=== PATIENT | female | born 1965 | race Caucasian/White ===

== ENCOUNTER 2019-12-07 09:39 | Day surgery (SDC) | payer OTHER ==
[2019-12-07 10:20] LABS: Absolute Lymphocytes (CBC) 1.8 K/uL (0.7-4.9); Basophils % 0.9 % (0-1.3); Hematocrit 31.5 % (36.0-45.0); Lymphocytes % 26.3 % (15.3-44.8); MPV 7.7 fL (7.6-11.3); RBC Red Blood Cell Count 4.77 M/uL (3.86-4.86)
[2019-12-07 10:23] LABS: Protime INR 0.89
[2019-12-07 10:30] LABS: Potassium 3.7 mmol/L (3.5-5.1)
[2019-12-07] MEDS ORDERED: MIDAZOLAM HCL 2 MG/2 ML INJ ONE ×2 (10:46→11:55)
[2019-12-07 11:15] LABS: Anisocytosis 1+; Blood Morphology Comment NOTED (NOT SEEN); Hypochromasia 1+; Platelet Estimate INCR; Urine White Blood Cell Casts OK
[2019-12-07] MEDS ORDERED: NA CHLORIDE 0.9% 500 ML ONE (11:27)
[2019-12-07] MEDS ORDERED: HEPA 1000U/500MLS 1,000 UNIT/500 ML BAG IV ONE (11:46)
[2019-12-07] MEDS ORDERED: ATROPINE SULF 1 MG/10 ML SYR IV ONE (11:46)
[2019-12-07] MEDS ORDERED: FENTANYL CITR 100 MCG/2 ML ONE (11:46)
[2019-12-07] MEDS ORDERED: NA CHLORIDE 0.9% 0 ML ONE (11:46)
--- NOTE | 2019-12-07 12:39 | OP ---
Surgeon: Petey Omer MD Float Tender: Ignacio Odell. Admitted as an outpatient today through the construction laborer for heart catheterization. Procedures: Left heart catheterization, selective coronary arteriogram and left ventriculogram, end- diastolic pressure measurements. Indication: Unstable angina and positive stress test. Procedure In Detail: The patient was prepped and draped in the routine sterile fashion. A 6-Monegasque sheath introduced in the right common femoral artery successfully. She had Versed and fentanyl for s edation, became slightly hypotensive, received 250 mL of normal saline bolus. Ralf catheter initi ally a 6-Monegasque JL4 was introduced into the left main, but she dampened her pressure to practically 0 . I exchanged that to a 4-Monegasque catheter, left Ralf. This showed about 20% left main stenosis. She had very small coronaries throughout between 1-1/2 to 2 mm in size. A JR4 6-Monegasque catheter was used to cannulate the right main same scenario. The catheter showed right coronary artery that is v marie small about 1-1/2 mm in size. She was codominant. The JR4 was also used to do an LV-gram, which was normal with an ejection fraction more than 70%. She had normal wall motion. Her end-diastolic pressure in the left ventricle was 15 mmHg. There were no complications or blood loss. Final Diagnoses: Moderate coronary artery disease. Plan: Plan is for medical therapy. Anesthesia: Total conscious sedation was 30 minutes. The patient will go home today in 2 hours and I will have her come see me in the office next week. SAM/MIC Voice ID: [id number] Report ID: [id number]
[2019-12-07 13:14] VITALS: TEMP 97.2
[2019-12-07 13:50] VITALS: O2SAT 98
[2019-12-07 14:25] VITALS: BP 106/70
== END 2019-12-07 14:15 | disposition home or self-care (01) ==
LOC: CCL 09:39
PROVIDERS: ATTEND Internal Medicine
DX: I25.110 Atherosclerotic heart disease of native coronary artery with unstable angina pectoris (principal); I10 Essential (primary) hypertension; E78.5 Hyperlipidemia, unspecified; E03.8 Other specified hypothyroidism; Z87.891 Personal history of nicotine dependence; Z79.82 Long term (current) use of aspirin; Z88.2 Allergy status to sulfonamides; Z88.0 Allergy status to penicillin; Z82.49 Family history of ischemic heart disease and other diseases of the circulatory system
CPT/HCPCS: 85025; 80048; 36415; 85610; 85730; 93458; C1893; C1760; J2250; J3010; J7040; J0583

== ENCOUNTER 2023-04-27 10:30 | Inpatient (IN) | payer OTHER ==
--- OUTSIDE RECORDS SUMMARY | 2023-04-27 10:36 | XMS REPORT | Continuity of Care Document ---
:1965 Author Organization [facility] Address [address] [place] [address] [place] [id number] Care Team Providers Name Role Phone MERLYN Attending Clinician Unavailable Dylan Attending Clinician Unavailable MERLYN Admitting Clinician Unavailable Dylan Admitting Clinician Unavailable Payers Payer Name Policy Type Policy Number Effective Date Expiration Date Joey QUINTANILLA [id number] 2011 00:00:00 Problems This patient has no known problems. Allergies, Adverse Reactions, Alerts This patient has no known allergies or adverse reactions. Medications This patient has no known medications. Procedures This patient has no known procedures. Encounters Start End Encounter Admission Attending Care Care Encounter Source Date/Time Date/Time Type Type Clinicians Facility Department ID 2022-01-16 2022-01-16 Outpatient JESU [facility]ERA [facility] [id number] [place] 00:00:00 00:00:00 JIEMNEZ [id number] [facility] Program 2020-02-15 2020-02-15 Outpatient Dylan MMJohana [id number] [place] 03:11:00 03:11:00 [id number] [facility] Results This patient has no known results.
[2023-04-27 11:09] LABS: Absolute Lymphocytes (CBC) 1.1 K/uL (0.7-4.9); Hematocrit 40.4 % (36.0-45.0); Lymphocytes % 14.5 % (15.3-44.8); MCV 88.3 fL (80-100); MPV 7.3 fL (7.6-11.3); Platelets 292 thou/uL (152-406); RBC Red Blood Cell Count 4.58 M/uL (3.86-4.86)
[2023-04-27 11:11] LABS: Protime INR 0.91
[2023-04-27 11:34] LABS: Troponin High Sensitivity 351.4 pg/mL (<58.9)
--- NOTE | 2023-04-27 12:10 | ER ---
Nurse's Notes [facility] Name: Judit Gallo Age: 58 yrs Sex: Female : 1965 Arrival Date: 04/27/2023 Time: 10:30 Bed 16 Private MD: Diagnosis: Unstable angina;Non ST elevation [place] Presentation: 04/27 10:38 Chief complaint: Patient states: Sent in by Dr. Rosenberg for further eval. CP and ll1 abnormal EKG. Coronavirus screen: Client denies travel out of the [place] in the last 14 days. At this time, the client does not indicate any symptoms associated with coronavirus-19. Ebola Screen: Patient denies travel to an Ebola-affected area in the 21 days before illness onset. Initial Sepsis Screen: Does the patient meet any 2 criteria? No. Patient's initial sepsis screen is negative. Does the patient have a suspected source of infection? No. Patient's initial sepsis screen is negative. Risk Assessment: Do you want to hurt yourself or someone else? Patient reports no desire to harm self or others. Onset of symptoms was April 22, 2023. 10:38 Method Of Arrival: Ambulatory ll1 10:38 Acuity: DAVIN 2 ll1 Historical: - Allergies: 10:37 PENICILLINS; ll1 10:37 Sulfa (Sulfonamide Antibiotics); ll1 - PMHx: 10:37 Hypertensive disorder; Hypercholesterolemia; Hypothyroidism; ll1 - PSHx: 10:37 None; ll1 - Immunization history:: Adult Immunizations up to date. - Social history:: Smoking status: Patient denies any tobacco usage or history of. - Family history:: not pertinent. - Hospitalizations: : No recent hospitalization is reported. Screenin:14 [facility] ED Fall Risk Assessment (Adult) Score/Fall Risk Level 0 - 2 = Low Risk nj1 Oriented to surroundings, Maintained a safe environment, Hourly rounding (assess needs \T\ fall precautionary measures) done. Abuse screen: Denies threats or abuse. Denies injuries from another. Nutritional screening: No deficits noted. Tuberculosis screening: No symptoms or risk factors identified. Assessment: 11:14 General: Appears in no apparent distress. comfortable, Behavior is calm, cooperative, nj1 appropriate for age. Pain: Denies pain. Neuro: Level of Consciousness is awake, alert, obeys commands, Oriented to person, place, time, situation. Cardiovascular: Denies chest pain, Patient's skin is warm and dry. Respiratory: Airway is patent Respiratory effort is even, unlabored. 12:30 Reassessment: Patient appears in no apparent distress at this time. No changes from nj1 previously documented assessment. Patient and/or family updated on plan of care and expected duration. Pain level reassessed. Patient is alert, oriented x 3, equal unlabored respirations, skin warm/dry/pink. Patient denies pain at this time. Vital Signs: 10:38 BP 137 / 82; Pulse 68; Resp 17; Temp 97.9; Pulse Ox 100% ; Weight 62.14 kg; Height 5 ll1 ft. 6 in. ; Pain 0/10; 10:45 BP 116 / 99; Pulse 62; Resp 16; Pulse Ox 100% ; nj1 11:45 BP 103 / 77; Pulse 52; Resp 16; Pulse Ox 100% ; nj1 12:30 BP 114 / 72; Pulse 53; Resp 15; Pulse Ox 100% ; Pain 0/10; nj1 10:38 Body Mass Index 22.11 (62.14 kg, 167.64 cm) ll1 10:38 Pain Scale: Adult ll1 12:30 Pain Scale: Adult nj1 ED Course: 10:31 Patient arrived in ED. ll1 10:31 Elroy Bernard MD is Attending Physician. rn 10:37 Arm band placed on Patient placed in an exam room, on a stretcher. ll1 10:39 Triage completed. ll1 10:52 Heather Askew, BERNARDA is Primary Nurse. nj1 11:15 Patient has correct armband on for positive identification. Bed in low position. Call nj1 light in reach. Adult w/ patient. Provided Education on: call light, fall precautions. 12:10 Chase Tobias MD is Hospitalizing Provider. rn 12:20 XRAY Chest (1 view) In Process Unspecified. EDMS 12:29 Inserted saline lock: 20 gauge in left forearm, using aseptic technique. ,using aseptic nj1 technique. Ultrasound guided. Catheter tip well visualized within vasculature during placement. Blood collected. 12:30 IV 20 R AC, previously inserted by Carolyn Winchester RN. Pt complaining of pain when this RN nj1 attempts to flush IV. . 12:45 No provider procedures requiring assistance completed. Patient admitted, IV remains in nj1 place. Administered Medications: 12:12 Drug: Aspirin PO 81 mg PO once Route: PO; nj1 12:38 Drug: Heparin ([place] Drip) 12 units/kg/[place] - ([place] [address] units, D5W IV 500 ml) IV at [facility] calculated rate Per protocol; Max initial rate 1000 units/hr {Co-Signature: aa5 (Aicha Cunningham RN).} Route: IV; Rate: calculated rate; Site: left forearm; 12:38 Drug: Heparin ([place]-Bolus No thrombolytic) - HEParin IVP 60 units/kg IVP once; Max 5000 nj1 units {Co-Signature: aa5 (Aicha Cunningham RN).} Route: IVP; Site: left forearm; Medication: 12:59 VIS not applicable for this client. nj Outcome: 12:10 Decision to Hospitalize by Provider. rn 12:43 Admitted to Senior Analytical Chemist accompanied by nurse, family with patient, via stretcher, Report [facility] called to Bedside report to Graciela MENCHACA 12:43 Condition: stable nj1 12:43 Instructed on the need for admit, 12:49 Patient left the ED. [facility] Signatures: Dispatcher [employer] EDMS Elroy Bernard MD MD rn Lewis, Lynsay, RN RN 1 Heather Askew RN RN njAicha Montgomery RN aa5 Corrections: (The following items were deleted from the chart) 13:00 13:00 Patient [place] the ED. [place] [id number]
--- NOTE | 2023-04-27 12:10 | EDPHYS ---
Physician Documentation [facility] Name: Judit Gallo Age: 58 yrs Sex: Female : 1965 Arrival Date: 04/27/2023 Time: 10:30 Bed 16 Private MD: ED Physician Elroy Bernard HPI: 04/27 11:04 This 58 yrs old Female presents to ER via Ambulatory with complaints of Chest Pain. rn 11:04 The patient or guardian reports chest pain that is located primarily in the substernal rn area. Onset: 5 day(s) ago. The pain radiates to the left arm. Associated signs and symptoms: Pertinent negatives: abdominal pain, cough, diaphoresis, near syncope, palpitations, shortness of breath, syncope, vomiting. The chest pain is described as a pressure. Duration: The patient or guardian reports multiple episodes, that are intermittent, the episodes last approximately 20 minute(s). Modifying factors: The symptoms are alleviated by nothing. the symptoms are aggravated by nothing. Severity of pain: At its worst the pain was moderate in the emergency department the pain has resolved. The patient has not experienced similar symptoms in the past. Patient reports substernal chest pain, pressure, radiates down to the left arm, no diaphoresis or dyspnea. Episodes last 10 to 20 minutes. Currently no chest pain, last episode of chest pain was in Dr. Rosenberg's office just prior to coming in. Last heart catheter showed 20% blockage of left main.. Historical: - Allergies: 10:37 PENICILLINS; ll1 10:37 Sulfa (Sulfonamide Antibiotics); ll1 - PMHx: 10:37 Hypertensive disorder; Hypercholesterolemia; Hypothyroidism; ll1 - PSHx: 10:37 None; ll1 - Immunization history:: Adult Immunizations up to date. - Social history:: Smoking status: Patient denies any tobacco usage or history of. - Family history:: not pertinent. - Hospitalizations: : No recent hospitalization is reported. ROS: 11:04 Constitutional: Negative for fever, chills, and weight loss, Cardiovascular: Positive rn for chest pain Respiratory: Negative for shortness of breath, cough, wheezing, and pleuritic chest pain, Abdomen/GI: Negative for abdominal pain, nausea, vomiting, diarrhea, and constipation, Back: Negative for injury and pain, MS/Extremity: Negative for injury and deformity, Skin: Negative for injury, rash, and discoloration, Neuro: Negative for headache, weakness, numbness, tingling, and seizure, Exam: 11:04 Constitutional: This is a well developed, well nourished patient who is awake, alert, rn and in no acute distress. Head/Face: Normocephalic, atraumatic. Cardiovascular: Regular rate and rhythm. No pulse deficits. Respiratory: Speaking full sentences, unlabored. No increased work of breathing, no retractions or nasal flaring. Abdomen/GI: Soft, nontender Neuro: Awake and alert, GCS 15 15:52 ECG was reviewed by the Attending Physician. rn Vital Signs: 10:38 BP 137 / 82; Pulse 68; Resp 17; Temp 97.9; Pulse Ox 100% ; Weight 62.14 kg; Height 5 ll1 ft. 6 in. ; Pain 0/10; 10:45 BP 116 / 99; Pulse 62; Resp 16; Pulse Ox 100% ; nj1 11:45 BP 103 / 77; Pulse 52; Resp 16; Pulse Ox 100% ; nj1 12:30 BP 114 / 72; Pulse 53; Resp 15; Pulse Ox 100% ; Pain 0/10; nj1 10:38 Body Mass Index 22.11 (62.14 kg, 167.64 cm) ll1 10:38 Pain Scale: Adult ll1 12:30 Pain Scale: Adult nj1 MDM: 10:31 Patient medically screened. rn 12:08 Differential diagnosis: abnormal EKG, acute myocardial infarction, acute pericarditis, rn coronary artery disease costochondritis, gastritis, gastroesophageal reflux disease (GERD), pericarditis, unstable angina. HEART Score: History: Highly Suspicious (2), ECG: Significant ST-deviation (2), Age: > 45 and < 65 years (1), Risk Factors: > or = 3 Risk factors for atherosclerotic disease (2), Troponin: > or = 3 x Normal Limit (2), Total Score = 9. The patient was given aspirin in the Emergency Department. Data reviewed: vital signs, nurses notes, lab test result(s), EKG, radiologic studies, plain films, and as a result, I will admit patient. Consideration of Admission/Observation Patient was admitted/placed on observation. Escalation of care including admission/observation considered. Management of patient was discussed with the following: Registered Public Surveyor: Dr. Raslan, requests case discussed, plans to cath later today, wants heparin and aspirin.. I considered the following discharge prescriptions or medication management in the emergency department Medications were administered in the Emergency Department. See MAR. Independent interpretation of the following test(s) in the Emergency Department EKG: See my EKG interpretation above X-Ray: My interpretation is Chest x-ray shows signs of smoking but no other acute abnormality per my interpretation. Counseling: I had a detailed discussion with the patient and/or guardian regarding the historical points, exam findings, and any diagnostic results supporting the discharge/admit diagnosis, lab results, radiology results, the need for further work-up and treatment in the hospital. Response to treatment: the patient is now symptom free. 12:08 ED course: I personally spent 35 minutes engaged in work directly related to the rn individual patient's care. This does not include any time spent performing procedures. The patient has been deemed critically ill because of unstable angina/non-STEMI with dynamic EKG changes that will require urgent heparin infusion and catheterization by cardiology.. 04/27 10:32 Order name: Basic Metabolic Panel; Complete Time: 11:37 rn 04/27 10:32 Order name: CBC with Diff; Complete Time: 11: rn 04/27 10:32 Order name: NT PRO-BNP; Complete Time: 11:37 rn 04/27 10:32 Order name: PT-INR; Complete Time: 11:21 rn 04/27 10:32 Order name: Troponin HS; Complete Time: 11:37 rn 04/27 12:10 Order name: Ptt, Activated nj1 04/27 12:33 Order name: Troponin High Sensitivity [facility] 04/27 12:33 Order name: Troponin High Sensitivity [facility] 04/27 12:33 Order name: Troponin High Sensitivity [facility] 04/27 10:32 Order name: XRAY Chest (1 view); Complete Time: 12:32 rn 04/27 10:32 Order name: EKG; Complete Time: 10:32 rn 04/27 10:32 Order name: Cardiac monitoring; Complete Time: 11: rn 04/27 10:32 Order name: EKG - Nurse/Tech; Complete Time: 11: rn 04/27 10:32 Order name: IV Saline Lock; Complete Time: 11: rn 04/27 10:32 Order name: Labs collected and sent; Complete Time: 11: rn 04/27 10:32 Order name: O2 Per Protocol; Complete Time: 11 rn 04/27 10:32 Order name: O2 Sat Monitoring; Complete Time: 11: rn EC:52 Rate is 55 beats/min. Rhythm is regular. QRS [place] is Normal. [place] interval is normal. QRS rn interval is normal. QT interval is normal. No Q waves. T waves are Normal. ST Segment is depressed in leads V4, V5, V6. Clinical impression: Sinus bradycardia. Interpreted by me. Reviewed by me. Administered Medications: 12:12 Drug: Aspirin PO 81 mg PO once Route: PO; nj1 12:38 Drug: Heparin ([place] Drip) 12 units/kg/[place] - ([place] [address] units, D5W IV 500 ml) IV at nj1 calculated rate Per protocol; Max initial rate 1000 units/hr {Co-Signature: aa5 (Aicha Cunningham RN).} Route: IV; Rate: calculated rate; Site: left forearm; 12:38 Drug: Heparin ([place]-Bolus No thrombolytic) - HEParin IVP 60 units/kg IVP once; Max 5000 nj1 units {Co-Signature: aa5 (Aicha Cunningham RN).} Route: IVP; Site: left forearm; Disposition: 12:08 Critical Care:. rn Disposition Summary: 04/27/23 12:10 Hospitalization Ordered Notes: Hospitalization Status: Inpatient Admission rn Provider: Chase Tobias rn [facility] rn Condition: Stable rn Problem: an ongoing problem rn Symptoms: have improved rn Bed/Room Type: Standard rn Room Assignment: rn Diagnosis - Unstable angina rn - Non ST elevation [place] rn Forms: - Medication Reconciliation Form rn - SBAR form rn - Leadership Thank You Letter software intern time excluding procedures: 12:08 Critical care time: Bedside Care: 30 minutes, Consultation: 5 minutes. Total time: 35 rn minutes Signatures: Dispatcher [employer] Elroy Short MD MD rn Lewis, Lynsay RN RN ll1 Heather Askew RN RN nj1 Aicha Cunningham RN aa5
[2023-04-27] MEDS ORDERED: HEPARIN 5000 UNIT/ML 1 ML VIAL ONE ×2 (12:19→13:24)
[2023-04-27] MEDS ORDERED: ASPIRIN 81 MG CHEWABLE TABLET ONE (12:19)
[2023-04-27] MEDS ORDERED: ONDANSETRON 4 MG/2 ML VIAL IV PRN (12:20)
--- NOTE | 2023-04-27 12:28 | RAD REPORT ---
EXAM DESCRIPTION: RAD - Chest Single View - 04/27/2023 12:19 pm CLINICAL HISTORY: CHEST PAIN Chest pain. COMPARISON: No comparisons FINDINGS: Portable technique limits examination quality. The lungs are grossly clear. Small right pleural effusion suspected. The heart is normal in size. No displaced fractures.Cervical hardware plate. IMPRESSION: No acute intrathoracic process suspected.
--- NOTE | 2023-04-27 12:28 | P.HP ---
Certification for Inpatient Patient admitted to: Inpatient With expected LOS: >2 Midnights Practitioner: I am a practitioner with admitting privileges, knowledge of patient current condition, hospital course, and medical plan of care. Services: Services provided to patient in accordance with Admission requirements found in Title 42 Section 412.3 of the Code of Federal Regulations Patient History Date of Service: 04/27/23 Reason for admission: Chest pain, NSTEMI History of Present Illness: 58 y o female patient was has a medical hx significant for hypertension, hyperlipidemia and prior history of left heart cath for suspected ACS admitted for management of NSTEMI. She had complaint of persistent chest pain that has been recurrent rated 7-10 out of intensity on several ocassions. Pain radiates into the left arm and the left jaw and also the right jaw. No issues with shortness of breath, nausea, vomiting, fever, chills, cough. Initial troponin done in the emergency room was elevated at >300 and patient was initially seen in the patient admitting clerk office and was asked to come to the ER for evaluation. She was started on heparin drip and was admitted for inpatient care and left heart cath. Allergies Penicillins Allergy (Verified 12/07/19 09:44) Anaphylaxis Sulfa (Sulfonamide Antibiotics) Allergy (Verified 12/07/19 09:44) Nausea/Vomiting - Past Medical/Surgical History Diabetic: No Review of Systems General: Unremarkable Eyes: Unremarkable ENT: Unremarkable Respiratory: Unremarkable Cardiovascular: Chest Pain Gastrointestinal: Unremarkable Genitourinary: Unremarkable Musculoskeletal: Unremarkable Integumentary: Unremarkable Neurological: Unremarkable Physical Examination - Physical Exam General: Alert HEENT: Atraumatic, Normocephalic Neck: Supple Respiratory: Normal air movement Cardiovascular: Regular rate/rhythm, Normal S1 S2 Gastrointestinal: Soft and benign Neurological: Normal speech, Normal strength at 5/5 x4 extr - Studies Laboratory Data (last 24 hrs) 04/27/23 04/27/23 04/27/23 10:55 10:55 10:55 WBC 7.30 Hgb 13.7 Hct 40.4 Plt Count 292 PT 10.0 INR 0.91 Sodium 139 Potassium 3.0 L BUN 18 Creatinine 1.29 H Glucose 108 H Assessment and Plan - Plan NSTEMI: Patient has elevated troponin and chest pain concerning for ACS. EKG changes not compatible with STEMI. Heparin restarted by cardiology service. We will have left heart catheter as per patient admitting clerk recommendation. Continue statin therapy and aspirin therapy post left heart cath. Further management recommendation as per cardiology team. Should be continued on telemetry Hypertension: We will monitor vital signs per unit protocol and continue antihypertensive medications Hyperlipidemia: We will continue statin therapy. Prophylaxis: Heparin drip should suffice for NSTEMI management and DVT prophylaxis. CODE STATUS: Full code. Disposition: Work-up for NSTEMI as per cardiology and pending discharge post work up. - Advance Directives Does patient have a Living Will: No Does patient have a Durable POA for Healthcare: No
[2023-04-27] MEDS ORDERED: HEPARIN/D5W 25,000 UNIT/500 ML BAG IV SCH (13:00)
[2023-04-27] MEDS ORDERED: NA CHLORIDE 0.9% 500 ML ONE (13:08)
[2023-04-27] MEDS ORDERED: LIDOCAINE 1% 20 ML MDV ONE ×3 (13:23→15:31)
[2023-04-27] MEDS ORDERED: HEPA 1000U/500MLS 2,000 UNIT/1,000 ML BAG IV ONE (13:23)
[2023-04-27] MEDS ORDERED: VERAPAMIL HCL 10 MG/4 ML VIAL IV ONE (13:24)
[2023-04-27] MEDS ORDERED: FENTANYL CITR 100 MCG/2 ML ONE ×3 (13:24→16:34)
[2023-04-27] MEDS ORDERED: CLOPIDOGREL 75 MG TABLET ONE (13:24)
[2023-04-27] MEDS ORDERED: MIDAZOLAM HCL 2 MG/2 ML INJ ONE (13:24)
[2023-04-27] MEDS ORDERED: HEPARIN 10,000 UNIT/10 ML VIAL IV ONE (13:25)
[2023-04-27] MEDS ORDERED: ASPIRIN 325 MG TAB ONE (13:25)
[2023-04-27] MEDS ORDERED: ATROPINE SULF 1 MG/10 ML SYR IV ONE (13:25)
[2023-04-27] MEDS ORDERED: TICAGRELOR 90 MG TABLET PO ONE (13:25)
[2023-04-27] MEDS ORDERED: NITROGLYCERIN 0.4 MG/TAB SL ONE (16:42)
[2023-04-27] MEDS ORDERED: NITROGLYCERIN 0.4 MG/TAB SL PRN (19:31)
[2023-04-27] MEDS: TICAGRELOR 90 MG TABLET PO SCH (20:27)
[2023-04-27] MEDS: ATORVASTATIN 40 MG TAB PO SCH (20:27)
[2023-04-27] MEDS: ACETAMINOPHEN 325 MG TABLET PO PRN (23:03)
[2023-04-27] MEDS: ZOLPIDEM TARTRATE 5 MG TABLET PO PRN (23:08)
[2023-04-27 23:20] VITALS: O2SAT 99
[2023-04-28 02:47] LABS: Absolute Lymphocytes (CBC) 1.2 K/uL (0.7-4.9); Hematocrit 33.3 % (36.0-45.0); Lymphocytes % 14.5 % (15.3-44.8); MCV 87.3 fL (80-100); MPV 7.4 fL (7.6-11.3); Platelets 273 thou/uL (152-406); Protime INR 0.95; RBC Red Blood Cell Count 3.82 M/uL (3.86-4.86)
[2023-04-28 03:23] LABS: Potassium 2.8 mEq/L (3.5-5.1)
[2023-04-28] MEDS: POTASSIUM 25 MEQ EFFERV TAB PO ONE ×2 (04:06→04:15)
[2023-04-28] MEDS: POTASSIUM CL SA 10 MEQ TAB PO ONE ×2 (04:06→04:14)
[2023-04-28] MEDS ORDERED: NA CHLORIDE 0.9% 250 ML ONE (04:34)
[2023-04-28] MEDS ORDERED: KCL 20 MEQ/100 mL IVPB 20 MEQ/100 ML BAG IV SCH (05:00)
[2023-04-28] MEDS ORDERED: POTASSIUM CL SA 10 MEQ TAB PO ONE (06:11)
[2023-04-28] MEDS ORDERED: MORPHINE 2 MG/ML SYR IV PRN (07:23)
[2023-04-28] MEDS: ACETAMINOPHEN 325 MG TABLET PO PRN (07:25)
--- NOTE | 2023-04-28 09:24 | P.PN ---
Subjective Date of Service: 04/28/23 Chief Complaint: Chest pain, NSTEMI Subjective: No new changes, Doing well Patient is alert oriented x3 Report mild back pain radiating to the neck area, nitroglycerin acetaminophen and morphine as needed for pain Patient heart heart cath on 04/27/2023 with 1 stent placement on RCA Vital stable History of Present Illness: 58 y o female patient was has a medical hx significant for hypertension, hyperlipidemia and prior history of left heart cath for suspected ACS admitted for management of NSTEMI. She had complaint of persistent chest pain that has been recurrent rated 7-10 out of intensity on several ocassions. Pain radiates into the left arm and the left jaw and also the right jaw. No issues with shortness of breath, nausea, vomiting, fever, chills, cough. Initial troponin done in the emergency room was elevated at >300 and patient was initially seen in the systems designer office and was asked to come to the ER for evaluation. She was started on heparin drip and was admitted for inpatient care and left heart cath. Review of Systems 10-point ROS is otherwise unremarkable Physical Examination - Vital Signs Temperature: 96.7 F Blood Pressure: 112/68 Pulse: 68 Respirations: 18 Pulse Ox (%): 97 - Physical Exam General: Alert, Oriented x3 HEENT: Atraumatic, Normocephalic, PERRLA Neck: Supple, 2+ carotid pulse no bruit Respiratory: Clear to auscultation bilaterally, Normal air movement Capillary refill: <2 Seconds Gastrointestinal: Normal bowel sounds, Soft and benign Integumentary: No rashes, No breakdown Neurological: Normal speech, Normal tone, Normal affect - Studies Laboratory Data (last 24 hrs) 04/27/23 04/27/23 04/27/23 10:55 10:55 10:55 WBC 7.30 Hgb 13.7 Hct 40.4 Plt Count 292 PT 10.0 INR 0.91 Sodium 139 Potassium 3.0 L BUN 18 Creatinine 1.29 H Glucose 108 H Assessment And Plan - Current Problems (Diagnosis) (1) NSTEMI (non-ST elevated myocardial infarction) Current Visit: Yes Status: Acute (2) HTN (hypertension) Current Visit: Yes Status: Acute (3) HLD (hyperlipidemia) Current Visit: Yes Status: Acute (4) Hypothyroid Current Visit: Yes Status: Acute - Plan Assessment and Plan - Plan NSTEMI: Patient has elevated troponin and chest pain concerning for ACS. EKG changes not compatible with STEMI. Heparin restarted by cardiology service. We will have left heart catheter as per systems designer recommendation. Continue statin therapy and aspirin therapy post left heart cath. Further management recommendation as per cardiology team. Should be continued on telemetry Hypertension: We will monitor vital signs per unit protocol and continue antihypertensive medications Hyperlipidemia: We will continue statin therapy. Prophylaxis: Heparin drip should suffice for NSTEMI management and DVT prophylaxis. CODE STATUS: Full code. Disposition: Work-up for NSTEMI as per cardiology and pending discharge post work up. Discharge Plan: Home Plan to discharge in: 24 Hours - Code Status/Comfort Care Code Status Assessed: Yes (Full code) Code Status: Full Code Physician Review: Patient Assessed, Agree with Above Assessment and Plan Critical Care: No Time Spent Managing PTS Care (In Minutes): 35 (Minutes)
[2023-04-28] MEDS: TICAGRELOR 90 MG TABLET PO SCH ×2 (10:25→21:01)
[2023-04-28] MEDS: ASPIRIN EC 81 MG TAB PO SCH (10:25)
[2023-04-28 12:20] LABS: Potassium 3.4 mEq/L (3.5-5.1)
[2023-04-28] MEDS ORDERED: NA CHLORIDE 0.9% 500 ML ONE (14:27)
[2023-04-28] MEDS ORDERED: LIDOCAINE 1% 20 ML MDV ONE (14:44)
[2023-04-28] MEDS ORDERED: HEPA 1000U/500MLS 2,000 UNIT/1,000 ML BAG IV ONE (14:44)
[2023-04-28] MEDS ORDERED: FENTANYL CITR 100 MCG/2 ML ONE (14:58)
[2023-04-28] MEDS ORDERED: MIDAZOLAM HCL 2 MG/2 ML INJ ONE (14:58)
[2023-04-28] MEDS ORDERED: ASPIRIN 325 MG TAB ONE (14:58)
[2023-04-28] MEDS ORDERED: HEPARIN 10,000 UNIT/10 ML VIAL IV ONE (14:59)
[2023-04-28] MEDS ORDERED: ATROPINE SULF 1 MG/10 ML SYR IV ONE (14:59)
[2023-04-28] MEDS ORDERED: TICAGRELOR 90 MG TABLET PO ONE (14:59)
[2023-04-28] MEDS: ZOLPIDEM TARTRATE 5 MG TABLET PO PRN (21:01)
[2023-04-28] MEDS: ATORVASTATIN 40 MG TAB PO SCH (21:01)
[2023-04-28 23:53] VITALS: BMI 21.7
[2023-04-29 07:09] LABS: Potassium 3.1 mEq/L (3.5-5.1)
--- NOTE | 2023-04-29 07:12 | ECHO ---
HEIGHT: 5 ft 6 in WEIGHT: 135 lb 0 oz DATE OF STUDY: 04/28/[address]: Pino Rosenberg 2-DIMENSIONAL: YES M.MODE: YES DOPPLER: YES COLOR FLOW: YES TDS: PORTABLE: YES DEFINITY: BUBBLE STUDY: DIAGNOSIS: CHEST PAIN, POST HEART CATH CARDIAC HISTORY: CATHERIZATION: YES SURGERY: NO PROSTHETIC VALVE: NO PACEMAKER: NO MEASUREMENTS (cm) DIASTOLIC (NORMALS) SYSTOLIC (NORMALS) IVSd 0.9 (0.6-1.2) LA Diam 2.5 (1.9-4.0) LVEF 70% LVIDd 4.4 (3.5-5.7) LVIDs 2.7 (2.0-3.5) %FS 40% LVPWd 1.0 (0.6-1.2) Ao Diam 2.2 (2.0-3.7) 2 DIMENSIONAL ASSESSMENT: RIGHT ATRIUM: NORMAL LEFT ATRIUM: NORMAL RIGHT VENTRICLE: NORMAL LEFT VENTRICLE: NORMAL TRICUSPID VALVE: NORMAL MITRAL VALVE: TRACE MITRAL REGURGITATION PULMONIC VALVE: NORMAL AORTIC VALVE: NORMAL PERICARDIAL EFFUSION: NONE AORTIC ROOT: NORMAL LEFT VENTRICULAR WALL MOTION: NORMAL DOPPLER/COLOR FLOW: TRACE MITRAL REGURGITATION COMMENTS: 1. NORMAL LEFT VENTRICULAR EJECTION FRACTION 60-65% WITH NORMAL WALL MOTION 2. NORMAL DIASTOLIC FUNCTION 3. TRACE MITRAL REGURGITATION TECHNOLOGIST: OBINNA GARCES
[2023-04-29] MEDS ORDERED: POTASSIUM 25 MEQ EFFERV TAB PO ONE (08:16)
[2023-04-29] MEDS: ASPIRIN EC 81 MG TAB PO SCH (09:08)
[2023-04-29] MEDS: TICAGRELOR 90 MG TABLET PO SCH (09:09)
--- NOTE | 2023-04-29 14:11 | P.DS ---
Admission Date: 04/27/23 Discharge Date: 04/29/23 Disposition: ROUTINE DISCHARGE Discharge Condition: GOOD Reason for Admission: Chest pain, NSTEMI - Problems (1) NSTEMI (non-ST elevated myocardial infarction) Current Visit: Yes Status: Acute (2) HTN (hypertension) Current Visit: Yes Status: Acute (3) HLD (hyperlipidemia) Current Visit: Yes Status: Acute (4) Hypothyroid Current Visit: Yes Status: Acute Brief History of Present Illness: Date of admission 04/27/23 Reason for admission: Chest pain, NSTEMI History of Present Illness: 58 y o female patient was has a medical hx significant for hypertension, hyperlipidemia and prior history of left heart cath for suspected ACS admitted for management of NSTEMI. She had complaint of persistent chest pain that has been recurrent rated 7-10 out of intensity on several ocassions. Pain radiates into the left arm and the left jaw and also the right jaw. No issues with shortness of breath, nausea, vomiting, fever, chills, cough. Initial troponin done in the emergency room was elevated at >300 and patient was initially seen in the deckhand clam dredge office and was asked to come to the ER for evaluation. She was started on heparin drip and was admitted for inpatient care and left heart cath. Hospital Course: Ms. Lopez is a pleasant 58-year-old with a past medical history significant for hypertension hyperlipidemia and prior history of left heart cath for suspected ACS Who was admitted to the [facility] on 04/27/2020 for further management of NSTEMI. Patient hard cardiac cath with intervention on 04/27/2023, 04/29/2023 On 04/29/2020, patient was seen on morning rounds and deemed medically stable for discharge. Patient was discharged with instructions to schedule follow-up appointments with PCP in 3 to 5 days and the deckhand clam dredge Dr. Nichols in 4 weeks. Patient was provided prescriptions for Brilinta. The patient and family members were given the opportunity to ask questions and reported no further questions. Furthermore, all questions were answered to the best of my ability. Vital Signs/Physical Exam: Temp Pulse Resp BP Pulse Ox 97.7 F 64 18 112/60 98 04/29/23 08:00 04/29/23 08:00 04/29/23 08:00 04/29/23 08:00 04/29/23 08:00 General: Alert, Oriented x3 HEENT: Atraumatic, Normocephalic, PERRLA Neck: Supple, 2+ carotid pulse no bruit Respiratory: Clear to auscultation bilaterally, Normal air movement Cardiovascular: No edema, Normal pulses, Regular rate/rhythm Capillary refill: <2 Seconds Gastrointestinal: Normal bowel sounds, Soft and benign, Non-distended Musculoskeletal: No clubbing, No swelling, No contractures Neurological: Normal gait, Normal speech, Normal tone, Normal affect Laboratory Data at Discharge: WBC 8.40 thou/uL (4.3-10.9) 04/28/23 02:06 Hgb 11.9 g/dL (12.0-15.0) L D 04/28/23 02:06 Hct 33.3 % (36.0-45.0) L 04/28/23 02:06 Plt Count 273 thou/uL (152-406) 04/28/23 02:06 PT 10.4 SECONDS (9.5-12.5) 04/28/23 02:06 INR 0.95 04/28/23 02:06 APTT 30.1 SECONDS (24.3-36.9) 04/28/23 02:06 Sodium 140 mEq/L (136-145) 04/29/23 06:28 Potassium 3.1 mEq/L (3.5-5.1) L 04/29/23 06:28 BUN 13 mg/dL (7-18) 04/29/23 06:28 Creatinine 1.14 mg/dL (0.55-1.02) H 04/29/23 06:28 Glucose 138 mg/dL (74-106) H 04/29/23 06:28 Magnesium 2.0 mg/dL (1.6-2.4) 04/28/23 11:48 Home Medications: Aspirin 81 mg PO DAILY 04/27/23 Atorvastatin Calcium 40 mg PO BEDTIME 04/27/23 Estradiol [Estrace] 1 mg PO DAILY 04/27/23 Furosemide 40 mg PO BID 04/27/23 Levothyroxine Sodium 88 mcg PO DAILY 04/27/23 Metoprolol Succinate 25 mg PO DAILY 04/27/23 lisinopriL [Lisinopril] 10 mg PO DAILY 04/27/23 Ticagrelor [Brilinta*] 90 mg PO BID #60 pill 04/29/23 New Medications: Ticagrelor [Brilinta*] 90 mg PO BID #60 pill Physician Discharge Instructions: SEE HEART CATH HANDOUT Ms. Lopez is a pleasant 58-year-old with a past medical history significant for hypertension hyperlipidemia and prior history of left heart cath for suspected ACS Who was admitted to the [facility] on 04/27/2020 for further management of NSTEMI. Patient hard cardiac cath with intervention on 04/27/2023, 04/29/2023 On 04/29/2020, patient was seen on morning rounds and deemed medically stable for discharge. Patient was discharged with instructions to schedule follow-up appointments with PCP in 3 to 5 days and the deckhand clam dredge Dr. Nichols in 4 weeks. Patient was provided prescriptions for Brilinta. The patient and family members were given the opportunity to ask questions and reported no further questions. Furthermore, all questions were answered to the best of my ability. Diet: AHA Activity: Ad josselyn Followup: Pino Rosenberg MD [ACTIVE - CAN ADMIT] - Kiel Little DO [Primary Care Provider] - Time spent managing pt's care (in minutes): 55 (minutes)
[2023-04-29] MEDS ORDERED: CLOPIDOGREL 75 MG TABLET PO ONE (14:17)
[2023-04-29 14:21] VITALS: BP 105/70; TEMP 97.9
== END 2023-04-29 15:00 | disposition home or self-care (01) | DRG 322 ==
LOC: ER 10:30 → ERHOLD 12:21 → 4TH 19:12
PROVIDERS: ADMIT Internal Medicine Nephrology; ATTEND Internal Medicine Nephrology
PROC: 027034Z Dilation of Coronary Artery, One Artery with Drug-eluting Intraluminal Device, Percutaneous Approach (ICD-10-PCS; principal; 2023-04-27)
PROC: 4A023N7 Measurement of Cardiac Sampling and Pressure, Left Heart, Percutaneous Approach (ICD-10-PCS; 2023-04-27)
PROC: B2111ZZ Fluoroscopy of Multiple Coronary Arteries using Low Osmolar Contrast (ICD-10-PCS; 2023-04-27)
DX: I21.4 Non-ST elevation (NSTEMI) myocardial infarction (principal); I10 Essential (primary) hypertension; I20.0 Unstable angina; E03.9 Hypothyroidism, unspecified; M54.9 Dorsalgia, unspecified; E78.00 Pure hypercholesterolemia, unspecified; Z88.2 Allergy status to sulfonamides; Z88.0 Allergy status to penicillin; Z79.82 Long term (current) use of aspirin; Z79.899 Other long term (current) drug therapy
CPT/HCPCS: 36415; 71045; 76937; 80048; 83735; 83880; 84132; 84484; 85025; 85610; 85730; 92928; 93005; 93306; 93458; 96374; 99285; C1725; C1893; J0461; J1644; J2001; J2250; J2270; J2405; J3010; J3480; J7040; J7050; Q9966; Q9967

== ENCOUNTER 2023-10-16 12:18 | Day surgery (SDC) | payer OTHER ==
[2023-10-14 15:00] LABS: Absolute Basophils 0.1 K/uL (0-0.5); Absolute Eosinophils 0.2 K/uL (0-0.5); Absolute Lymphocytes (CBC) 1.3 K/uL (0.7-4.9); Absolute Monocytes 0.5 K/uL (0.1-1.3); Absolute Neutrophil 3.2 K/uL (1.8-8.0); Basophils % 1.4 % (0-1.3); Hematocrit 27.3 % (36.0-45.0); Hemoglobin 8.4 g/dL (12.0-15.0); Lymphocytes % 24.7 % (15.3-44.8); MCH 23.5 pg (27.0-35.0); MCHC 30.9 g/dL (32.0-36.0); MCV 76.1 fL (80-100); MPV 7.3 fL (7.6-11.3); Monocytes % 9.6 % (3.3-12.3); Neutrophils % 61.3 % (41.7-73.7); Platelets 489 thou/uL (152-406); RBC Red Blood Cell Count 3.59 M/uL (3.86-4.86); Red Cell Distribution Width 23.3 % (12.1-15.2)
[2023-10-14 15:08] LABS: PTT, Activated Partial Thromb 39.8 SECONDS (24.3-36.9)
[2023-10-14 15:47] LABS: Anion Gap 11.4 mEq/L (5.0-15.0); Potassium 3.4 mEq/L (3.5-5.1)
[2023-10-14 15:57] LABS: Anisocytosis 2+; Blood Morphology Comment NOTED (NOT SEEN); Platelet Estimate INCR; White Blood Cell Scan OK (OK)
[2023-10-16] MEDS: Ringers Lactate 1,000 ML IV ONE (12:50)
[2023-10-16] MEDS ORDERED: LIDOCAINE 1% MPF 5 ML VIAL ONE (15:42)
[2023-10-16] MEDS ORDERED: propofoL 200 MG/20 ML VIAL IV ONE ×2 (15:42)
[2023-10-16 17:31] VITALS: BP 95/62; TEMP 97.3; O2SAT 97
== END 2023-10-16 17:10 | disposition home or self-care (01) ==
LOC: OR 12:18
PROVIDERS: ATTEND Surgery
PROC: 0DB98ZX Excision of Duodenum, Via Natural or Artificial Opening Endoscopic, Diagnostic (ICD-10-PCS; 2023-10-16)
PROC: 0DB78ZX Excision of Stomach, Pylorus, Via Natural or Artificial Opening Endoscopic, Diagnostic (ICD-10-PCS; 2023-10-16)
PROC: 0DB68ZX Excision of Stomach, Via Natural or Artificial Opening Endoscopic, Diagnostic (ICD-10-PCS; 2023-10-16)
PROC: 0DB48ZX Excision of Esophagogastric Junction, Via Natural or Artificial Opening Endoscopic, Diagnostic (ICD-10-PCS; 2023-10-16)
PROC: 0DBP8ZX Excision of Rectum, Via Natural or Artificial Opening Endoscopic, Diagnostic (ICD-10-PCS; principal; 2023-10-16 15:15)
PROC: 0DBN8ZX Excision of Sigmoid Colon, Via Natural or Artificial Opening Endoscopic, Diagnostic (ICD-10-PCS; 2023-10-16 15:15)
DX: Z12.11 Encounter for screening for malignant neoplasm of colon (principal); D64.9 Anemia, unspecified; D50.0 Iron deficiency anemia secondary to blood loss (chronic); I10 Essential (primary) hypertension; E78.00 Pure hypercholesterolemia, unspecified; K52.9 Noninfective gastroenteritis and colitis, unspecified; K64.8 Other hemorrhoids; K29.50 Unspecified chronic gastritis without bleeding; D12.7 Benign neoplasm of rectosigmoid junction
CPT/HCPCS: 45380; 43239; 85025; 80048; 36415; 88312; 85610; 88305; 85730; J2704; J2001; J7120

== ENCOUNTER 2025-01-29 11:08 | Emergency (ER) | payer OTHER ==
[2025-01-29] MEDS ORDERED: ONDANSETRON 4 MG/2 ML VIAL ONE (11:43)
[2025-01-29] MEDS ORDERED: MORPHINE 4 MG/ML SYR ONE (11:43)
[2025-01-29] MEDS ORDERED: NA CHLORIDE 0.9% 1,000 ML ONE ×2 (11:43→14:06)
[2025-01-29 11:47] LABS: Absolute Lymphocytes (CBC) 0.9 K/uL (0.7-4.9); Hematocrit 31.3 % (36.0-45.0); Hemoglobin 8.9 g/dL (12.0-15.0); MCH 16.1 pg (27.0-35.0); MCHC 28.4 g/dL (32.0-36.0); MCV 56.8 fL (80-100); MPV 8.3 fL (7.6-11.3); Nucleated RBC Absolute Count 0.0 (0-0); Nucleated Red Blood Cells % 0.1 % (0-0); RBC Red Blood Cell Count 5.51 M/uL (3.86-4.86); White Blood Count 14.10 thou/uL (4.3-10.9)
[2025-01-29 11:49] LABS: Sqamous Epithelial None Seen /HPF (None Seen); Urine Micro Reflex YN NO BILL MICROSCOPIC; Urine WBC Clump Many /HPF (None Seen)
[2025-01-29 12:07] LABS: ALT/SGPT < 14 U/L (13-56); AST/SGOT 21 U/L (15-37); Albumin 2.9 g/dL (3.4-5.0); Albumin/Globulin Ratio 0.6 (1.1-1.8); Alkaline Phosphatase 92 U/L (45-117); Anion Gap 13.8 mEq/L (5.0-15.0); BUN Blood Urea Nitrogen 20 mg/dL (7-18); Globulin 5.1 g/dL (2.3-3.5); Glucose Level 135 mg/dL (74-106); Potassium 3.8 mEq/L (3.5-5.1)
--- NOTE | 2025-01-29 12:58 | RAD REPORT ---
EXAMINATION: Abdomen Pelvis Wo Contrast CLINICAL INDICATION: Female, 59 years old.ABD PAIN TECHNIQUE: CT abdomen and pelvis was performed, without IV contrast, as per department protocol. Axia l, sagittal and coronal reconstructions were obtained. One or more of the following dose reduction techniques were used: Automated exposure control, adjustment of the mA and/or kV according to the pat ient size, and/or iterative reconstruction. Unless otherwise specified, incidental findings do not require dedicated imaging follow-up. [id number]. IV CONTRAST: Not administered. COMPARISON: 10/14/2023 FINDINGS: The lack of intravenous contrast limits the sensitivity of this exam for evaluation of solid visceral organs, vascular structures, and retroperitoneum. LOWER CHEST: No acute process identified.No significant pericardial effusion. UPPER GI: No significant abnormality. LIVER: Benign appearing low density liver lesions. No suspicious mass. GALLBLADDER/BILE DUCTS: Cholecystectomy.? PANCREAS: No mass, ductal dilation, or carlton-pancreatic fluid. SPLEEN: Unremarkable. ADRENALS: No adrenal masses. KIDNEYS AND URETERS: Severe right-sided hydronephrosis. Multiple renal calculi in the lower pole. Imm ediately attenuation right lower pole renal lesion measuring 17 mm is not significantly changed.The right ureter is decompressed. ABDOMINAL AORTA AND OTHER VESSELS: Normal caliber aorta and IVC. PERITONEUM: No abnormal free fluid. No free air. LYMPH NODES: No pathologic lymphadenopathy. ABDOMINAL WALL: Unremarkable SMALL BOWEL/COLON: Small bowel has normal course and caliber. No colonic wall thickening or pericolon ic inflammatory changes. URINARY BLADDER: Underdistended but grossly unremarkable. REPRODUCTIVE ORGANS: No pathologic process. MUSCULOSKELETAL: L4-S1 fusion. ADDITIONAL FINDINGS: None. IMPRESSION: Severe chronic right-sided hydronephrosis with severe renal cortical thinning. 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 Increased urothelial thickening and perinephric stranding may indicate superimposed infection (pyonephrosis). Recommend urologic consultation.
[2025-01-29 13:25] LABS: Blood Morphology Comment NOTED (NOT SEEN); White Blood Cell Scan OK (OK)
[2025-01-29 13:26] LABS: Anisocytosis 2+; Hypochromasia 2+; Microcytosis 2+
[2025-01-29] MEDS ORDERED: NA CHLORIDE 0.9% 50 ML ONE (13:36)
[2025-01-29] MEDS ORDERED: CEFTRIAXONE 1000 MG/VIAL ONE (13:36)
[2025-01-29 16:35] LABS: Anion Gap 10.4 mEq/L (5.0-15.0); BUN Blood Urea Nitrogen 17.0 mg/dL (7-18); Glucose Level 134.0 mg/dL (74-106); Potassium 3.4 mEq/L (3.5-5.1)
--- NOTE | 2025-01-29 16:49 | EDPHYS ---
Physician Documentation [facility] Name: Judit Gallo Age: 59 yrs Sex: Female : 1965 Arrival Date: 01/29/2025 Time: 11:08 Bed 14 Private MD: WALLY Physician Sarahy Tee HPI: 01/29 11:25 This 59 yrs old Female presents to ER via Ambulatory with complaints of Back sw6 Pain, Flank Pain, Fever. 11:25 The patient presents with pain that is acute, with no known mechanism of injury. The sw6 symptoms are located in the right flank. Onset: The symptoms/episode began/occurred Thursday - today is thursday. The pain does not radiate. Associated signs and symptoms: Pertinent positives: nausea, Pertinent negatives: dysuria, hematuria, urinary retention, vomiting. The problem was sustained without known cause. The patient has experienced similar episodes in the past, several times. The patient presents from home for evaluation for right-sided flank pain since Thursday. Today is Thursday. She denies any injury or trauma. No dysuria or hematuria. She complains of fevers yesterday but none today. She reports the pain is worse with bending and movement and is better when she is still. She does have a history of a right kidney and ureteral injury several decades ago that has required several surgeries at [facility] in [facility]. She also reports a history of a previous heart attack and does take aspirin daily but no other blood thinners. She has high blood pressure and thyroid disease but no diabetes. She reports she has had infections in her urine cause any symptoms in the past but normally does not have the urinary symptoms preceding it. No medication taken prior to arrival. Here for evaluation.. Historical: - Allergies: 11:15 PENICILLINS; aa5 11:15 Sulfa (Sulfonamide Antibiotics); aa5 - Home Meds: 11:15 metoprolol [Active]; Aspirin Oral [Active]; gabapentin oral [Active]; Gemfibrozil Oral aa5 [Active]; Amitriptyline Oral [Active]; - PMHx: 11:15 Hypercholesterolemia; Hypertensive disorder; Hypothyroidism; Kidney stone; Myocardial aa5 infarction; neuropathy; - PSHx: 11:15 Right kidney sx from trauma (Unknown); Right ureterer sx (Hypothyroidism); Lithotripsy; aa5 Cholecystectomy; Hysterectomy; Heart stent; - Immunization history:: Adult Immunizations unknown. - Infectious Disease History:: Denies. - Social history:: Smoking status: Reported history of juuling and/or vaping. ROS: 11:25 Constitutional: Negative for fever, chills, and weight loss, Cardiovascular: Negative sw6 for chest pain, palpitations, and edema, Respiratory: Negative for shortness of breath, cough, wheezing, and pleuritic chest pain, 11:25 Abdomen/GI: Positive for nausea, flank pain, Negative for vomiting, diarrhea, 11:25 All other systems are negative, Exam: 11:25 Constitutional: This is a well developed, well nourished patient who is awake, alert, sw6 and in no acute distress. Chest/axilla: Normal chest wall appearance and motion. Nontender with no deformity. No lesions are appreciated. Cardiovascular: Regular rate and rhythm with a normal S1 and S2. No gallops, murmurs, or rubs. Normal PMI, no JVD. No pulse deficits. Respiratory: Lungs have equal breath sounds bilaterally, clear to auscultation and percussion. No rales, rhonchi or wheezes noted. No increased work of breathing, no retractions or nasal flaring. Abdomen/GI: Soft, non-tender, with normal bowel sounds. No distension or tympany. No guarding or rebound. No evidence of tenderness throughout. Back: No spinal tenderness. No costovertebral tenderness. Full range of motion. Skin: Warm, dry with normal turgor. Normal color with no rashes, no lesions, and no evidence of cellulitis. MS/ Extremity: Pulses equal, no cyanosis. Neurovascular intact. Full, normal range of motion. Neuro: Awake and alert, GCS 15, oriented to person, place, time, and situation. Cranial nerves II-XII grossly intact. Motor strength 5/5 in all extremities. Sensory grossly intact. Cerebellar exam normal. Normal gait. Vital Signs: 11:14 BP 106 / 68; Pulse 98; Resp 18 S; Temp 98(O); Pulse Ox 100% on R/A; aa5 11:50 BP 116 / 67; Pulse 91; Resp 16; Pulse Ox 97% on R/A; db 12:00 BP 119 / 69; Pulse 89; Resp 18; Pulse Ox 99% ; db 13:48 BP 99 / 62; Pulse 79; Resp 16; Pulse Ox 100% ; db 14:30 BP 100 / 68; Pulse 80; Resp 18; Pulse Ox 98% on R/A; db 15:30 BP 101 / 63; Pulse 79; Resp 16; Pulse Ox 98% on R/A; db 16:49 BP 111 / 66; Pulse 72; Resp 16; Pulse Ox 100% ; db MDM: 11:13 Medical Screening Exam initiated 11:25 Differential diagnosis: Ligament Injury Pyelonephritis UTI, hydronephrosis, renal sw6 stone. Data reviewed: vital signs, nurses notes. 16:46 Data reviewed: lab test result(s), electrolytes. ED course: The patient is doing well from the ER. Her laboratory studies show an elevated creatinine of 2.04 her baseline creatinine is around 1.3. She was given 2 L of fluid and a repeat BMP shows her creatinine has improved to 1.64. Her urinalysis shows infection and she was given a dose of IV Rocephin here in the ER. The CT of her abdomen pelvis shows her stable right kidney pathology and no evidence of a ureteral or renal stone. The patient is feeling better after the pain medication, IV fluids and IV antibiotics given here today. She is okay for discharge home with PCP follow-up in 1 week.. 01/29 11:24 Order name: CBC with Diff; Complete Time: 13:28 01/29 13:23 Interpretation: Abnormal: Leukocytosis, Anemia. 01/29 11:24 Order name: CMP; Complete Time: 13:22 01/29 13:25 Interpretation: Abnormal: Madhu. 01/29 11:24 Order name: UA W/ Microscopic; Complete Time: 13:22 01/29 13:23 Interpretation: Abnormal: Leukocyte esterase, Hematuria. 01/29 11:58 Order name: CBC Smear Scan; Complete Time: 13:28 EDVA 01/29 13:28 Interpretation: Within normal limits. 01/29 15:04 Order name: BMP; Complete Time: 16:45 01/29 16:45 Interpretation: Normal except: CRE 1.64; Creatinine improved from prior. 01/29 12:31 Order name: Abdomen ; Complete Time: 13:22 EDVA 01/29 13:26 Interpretation: Abnormal. 01/29 11:24 Order name: IV Saline Lock; Complete Time: 11:39 [facility] 01/29 11:24 Order name: Labs collected and sent; Complete Time: 11:39 6 Administered Medications: 11:45 Drug: Ondansetron IVP 4 mg IVP once; over 2 minutes Route: IVP; Site: right antecubital;db 13:49 Follow up: Response: No adverse reaction db 11:45 Drug: morphine IVP or IV 4 mg IVP once over 4 mins Route: IVP; Infused Over: 4 mins; db Site: right antecubital; 13:49 Follow up: Response: No adverse reaction db 11:45 Drug: NS 0.9% IV 1000 ml IV at 1 bolus Per protocol; to be given as a bolus over 60 db minutes Route: IV; Rate: 1 bolus; Site: right antecubital; 13:48 Follow up: Response: No adverse reaction; IV Status: Completed infusion; IV Intake: db 1000ml 13:40 Drug: Rocephin IV 1 grams IV at calculated rate once; Given slow IV push per pharmacy db instructions Route: IV; Rate: calculated rate; Site: right antecubital; 16:59 Follow up: Response: No adverse reaction; IV Status: Completed infusion; IV Intake: 50mldb 14:58 Drug: NS 0.9% IV 1000 ml IV at 1000 ml once; to be given as a bolus over 60 minutes aa5 Route: IV; Rate: 1000 ml; Site: right wrist; 16:59 Follow up: Response: No adverse reaction; IV Status: Completed infusion; IV Intake: db 1000ml Disposition Summary: 01/29/25 16:48 Discharge Ordered Notes: Location: Home [facility] Problem: new sw6 Symptoms: have improved sw6 Condition: Stable sw6 Diagnosis - Pyelonephritis acute sw6 - Acute kidney failure, unspecified sw6 Followup: sw6 - With: Private Physician - When: 2 - 3 days - Reason: Recheck today's complaints Discharge Instructions: - Discharge Summary Sheet sw6 - Pyelonephritis, Adult 6 Forms: - Medication Reconciliation Form 6 - Antibiotic Education sw6 - Prescription Opioid Use sw6 - Patient Portal Instructions 6 - Leadership Thank You Letter 6 Prescriptions: - cefpodoxime 100 mg Oral Tablet - take 1 tablet ORAL route every 12 hours for 10 days take with food; 20 tablet; sw6 Refills: 0, Product Selection Permitted Signatures: Dispatcher [employer] Aicha Palafox, RN RN aa5 Arianna Daniels RN RN db Sarahy Tee MD MD sw6 Corrections: (The following items were deleted from the chart) 12:31 11:25 Abdomen Pelvis W Con+CT.RAD.BRZ ordered. EDMS EDMS
--- NOTE | 2025-01-29 16:49 | ER ---
Nurse's Notes [facility] Name: Judit Gallo Age: 59 yrs Sex: Female : 1965 Arrival Date: 01/29/2025 Time: 11:08 Bed 14 Private MD: Diagnosis: Pyelonephritis acute;Acute kidney failure, unspecified Presentation: 01/29 11:14 Chief complaint: Patient states: right flank pain since Thursday and getting worse. Pt aa5 also reports fever up to 102.5*F since yesterday. Coronavirus screen: fever. Ebola Screen: Patient denies travel to an Ebola-affected area in the 21 days before illness onset. Initial Sepsis Screen: Does the patient meet any 2 criteria? HR > 90 bpm. Does the patient have a suspected source of infection? No. Patient's initial sepsis screen is negative. Risk Assessment: Do you want to hurt yourself or someone else? Patient reports no desire to harm self or others. Onset of symptoms was January 2025. 11:14 Acuity: DAVIN 3 aa5 11:14 Method Of Arrival: Ambulatory aa5 Historical: - Allergies: 11:15 PENICILLINS; aa5 11:15 Sulfa (Sulfonamide Antibiotics); aa5 - Home Meds: 11:15 metoprolol [Active]; Aspirin Oral [Active]; gabapentin oral [Active]; Gemfibrozil Oral aa5 [Active]; Amitriptyline Oral [Active]; - PMHx: 11:15 Hypercholesterolemia; Hypertensive disorder; Hypothyroidism; Kidney stone; Myocardial aa5 infarction; neuropathy; - PSHx: 11:15 Right kidney sx from trauma (Unknown); Right ureterer sx (Hypothyroidism); Lithotripsy; aa5 Cholecystectomy; Hysterectomy; Heart stent; - Immunization history:: Adult Immunizations unknown. - Infectious Disease History:: Denies. - Social history:: Smoking status: Reported history of juuling and/or vaping. Screenin:41 [facility] ED Fall Risk Assessment (Adult) History of falling in the last 3 months, db including since admission No falls in past 3 months (0 pts) Confusion or Disorientation No (0 pts) Intoxicated or Sedated No (0 pts) Impaired Gait No (0 pts) Mobility Assist Device Used No (0 pt) Altered Elimination No (0 pt) Score/Fall Risk Level 0 - 2 = Low Risk Oriented to surroundings, Maintained a safe environment. Abuse screen: Denies threats or abuse. Denies injuries from another. Nutritional screening: No deficits noted. Tuberculosis screening: No symptoms or risk factors identified. Assessment: 11:40 Reassessment: Patient appears in no apparent distress at this time. Patient and/or db family updated on plan of care and expected duration. Pain level reassessed. Patient is alert, oriented x 3, equal unlabored respirations, skin warm/dry/pink. General: Appears in no apparent distress. comfortable, Behavior is calm, cooperative. Neuro: Level of Consciousness is awake, alert, obeys commands, Oriented to person, place, time, situation. Respiratory: Airway is patent Respiratory effort is even, unlabored, Respiratory pattern is regular, symmetrical. 11:58 Reassessment: Patient appears in no apparent distress at this time. Patient and/or db family updated on plan of care and expected duration. Pain level reassessed. Patient is alert, oriented x 3, equal unlabored respirations, skin warm/dry/pink. Pain: Complains of pain in right low back. 13:00 Reassessment: Patient appears in no apparent distress at this time. Patient and/or db family updated on plan of care and expected duration. Pain level reassessed. Patient is alert, oriented x 3, equal unlabored respirations, skin warm/dry/pink. 14:00 Reassessment: Patient appears in no apparent distress at this time. Patient and/or db family updated on plan of care and expected duration. Pain level reassessed. Patient is alert, oriented x 3, equal unlabored respirations, skin warm/dry/pink. 15:00 Reassessment: Patient appears in no apparent distress at this time. Patient and/or db family updated on plan of care and expected duration. Pain level reassessed. Patient is alert, oriented x 3, equal unlabored respirations, skin warm/dry/pink. 16:00 Reassessment: Patient appears in no apparent distress at this time. Patient and/or db family updated on plan of care and expected duration. Pain level reassessed. Patient is alert, oriented x 3, equal unlabored respirations, skin warm/dry/pink. 16:56 Reassessment: Patient appears in no apparent distress at this time. Patient and/or db family updated on plan of care and expected duration. Pain level reassessed. Patient is alert, oriented x 3, equal unlabored respirations, skin warm/dry/pink. Patient states feeling better. Patient states symptoms have improved. General: Appears in no apparent distress. comfortable. Vital Signs: 11:14 BP 106 / 68; Pulse 98; Resp 18 S; Temp 98(O); Pulse Ox 100% on R/A; aa5 11:50 BP 116 / 67; Pulse 91; Resp 16; Pulse Ox 97% on R/A; db 12:00 BP 119 / 69; Pulse 89; Resp 18; Pulse Ox 99% ; db 13:48 BP 99 / 62; Pulse 79; Resp 16; Pulse Ox 100% ; db 14:30 BP 100 / 68; Pulse 80; Resp 18; Pulse Ox 98% on R/A; db 15:30 BP 101 / 63; Pulse 79; Resp 16; Pulse Ox 98% on R/A; db 16:49 BP 111 / 66; Pulse 72; Resp 16; Pulse Ox 100% ; db ED Course: 11:11 Patient arrived in ED. cj3 11:13 Sarahy Tee MD is Attending Physician. sw6 11:14 Arm band placed on. aa5 11:15 Triage completed. aa5 11:26 Arianna Daniels, BERNARDA is Primary Nurse. db 11:35 Initial lab(s) drawn, by me, sent to lab. Inserted saline lock: 22 gauge in right db antecubital area, using aseptic technique. Blood collected. Flushed with 10 mL NS. 11:35 Urine collected: clean catch specimen, cloudy. db 11:41 Patient has correct armband on for positive identification. Bed in low position. Call db light in reach. Side rails up X 1. Pulse ox on. NIBP on. Warm blanket given. Pillow given. 12:34 Abdomen In Process Unspecified. EDMS 14:55 Missed attempt(s): 22 gauge in right upper arm. Bleeding controlled, band aid applied, aa5 catheter tip intact. 14:57 Inserted saline lock: 20 gauge in right wrist, using aseptic technique. aa5 16:56 Provided Education on: DISCHARGE AND FOLLOWUP. db 16:56 No provider procedures requiring assistance completed. IV discontinued, intact, db bleeding controlled, No redness/swelling at site. Administered Medications: 11:45 Drug: Ondansetron IVP 4 mg IVP once; over 2 minutes Route: IVP; Site: right antecubital;db 13:49 Follow up: Response: No adverse reaction db 11:45 Drug: morphine IVP or IV 4 mg IVP once over 4 mins Route: IVP; Infused Over: 4 mins; db Site: right antecubital; 13:49 Follow up: Response: No adverse reaction db 11:45 Drug: NS 0.9% IV 1000 ml IV at 1 bolus Per protocol; to be given as a bolus over 60 db minutes Route: IV; Rate: 1 bolus; Site: right antecubital; 13:48 Follow up: Response: No adverse reaction; IV Status: Completed infusion; IV Intake: db 1000ml 13:40 Drug: Rocephin IV 1 grams IV at calculated rate once; Given slow IV push per pharmacy db instructions Route: IV; Rate: calculated rate; Site: right antecubital; 16:59 Follow up: Response: No adverse reaction; IV Status: Completed infusion; IV Intake: 50mldb 14:58 Drug: NS 0.9% IV 1000 ml IV at 1000 ml once; to be given as a bolus over 60 minutes aa5 Route: IV; Rate: 1000 ml; Site: right wrist; 16:59 Follow up: Response: No adverse reaction; IV Status: Completed infusion; IV Intake: db 1000ml Medication: 16:56 VIS not applicable for this client. db Intake: 13:48 IV: 1000ml; Total: 1000ml. db 16:59 IV: 1000ml; Total: 2000ml. db 16:59 IV: 50ml; Total: 2050ml. db Outcome: 16:48 Discharge ordered by MD. barajas 16:56 Discharged to home ambulatory, with family, db 16:56 Condition: stable 16:56 Discharge instructions given to patient, family, Instructed on discharge instructions, follow up and referral plans. Prescriptions given X 1, 17:00 Patient left the ED. db Signatures: Dispatcher [employer] EDAicha Garvin RN RN aa5 Arianna Daniels RN RN Sarahy Mcgovern MD MD sw6 Melvina Arredondo [email or web address]
[2025-01-29 17:30] VITALS: TEMP 98
[2025-01-29 17:45] VITALS: BP 111/66; O2SAT 100
== END 2025-01-29 17:00 | disposition home or self-care (01) ==
LOC: ER 11:08
DX: N10 Acute pyelonephritis (principal); N17.9 Acute kidney failure, unspecified; Z87.442 Personal history of urinary calculi
CPT/HCPCS: 96365; 96361; 85025; 81001; 80048; 36415; 80053; 74176; 96375; 99284; 96366; J2405; J7030 ×2; J0696